=== PATIENT | male | born 1950 | race Caucasian/White ===

== ENCOUNTER → 2021-01-17 | Outpatient (CLI) | payer MEDICARE, OTHER ==
[~2021-01-17] MED LIST: COREG12.5 MG PO; ECOTRIN81 MG PO; LEVAQUIN500 MG PO; PLAVIX 75 MG TA75 MG PO; PRAVACHOL40 MG PO; PRINIVIL20 MG PO; TYLENOL WITH C1 EACH PO; VITAMIN D22000 UNIT PO
== END ==
LOC: HEART 5 07:49
DX: I50.22 Chronic systolic (congestive) heart failure (principal); I08.3 Combined rheumatic disorders of mitral, aortic and tricuspid valves; I27.20 Pulmonary hypertension, unspecified; Z95.0 Presence of cardiac pacemaker
CPT/HCPCS: 93306

== ENCOUNTER → 2021-05-16 | Outpatient (CLI) | payer MEDICARE, OTHER | LOC: KOH-I 13:55 | DX: Z87.891 Personal history of nicotine dependence (principal); J44.9 Chronic obstructive pulmonary disease, unspecified | CPT/HCPCS: 71271 ==

== ENCOUNTER → 2021-08-30 | Outpatient (CLI) | payer MEDICARE, OTHER | LOC: HEART 5 08:43 | DX: R06.02 Shortness of breath (principal); I20.8 Other forms of angina pectoris | CPT/HCPCS: 78452; A9502; J2785 ==